=== PATIENT | male | born 1970 | race Caucasian/White ===

== ENCOUNTER 2025-03-25 09:44 | Outpatient (CLI) | payer MEDICARE, SELFPAY ==
--- NOTE | ~2025-03-25 | CT_ITS ---
CTA abdomen pelvis Clinical History: back pain Technique: Helical images lung bases to pelvic outlet IV contrast information not listed in PACS Coronal, sagittal reformats. Multiplanar MIPS CT images acquired with automatic exposure control for dose reduction DLP: 1280 mGy-cm Comparison: None Findings: CTA Findings: Abdominal aorta: Infrarenal AAA at 5.0 cm. No real neck below renal arteries. No extension into iliac arteries. Common iliac arteries: Diffusely diseased but patent without stenosis. External iliac arteries: Patent. Hypogastric arteries: Patent. CFAs: Patent. Proximal visualized SFAs and profundas: Patent. Celiac: Patent. SMA: Patent. HAYLEY: Patent. Renal arteries: Patent. Non-CTA findings: Lung bases: Clear. Visualized heart and pericardium: Unremarkable. Liver: Enlarged. Steatosis. Gallbladder: Severely contracted. Less likely prominent remnant cystic duct. Spleen: Unremarkable. Pancreas: Unremarkable. Adrenal glands: Unremarkable. Kidneys: Right kidney- No renal stones. No hydronephrosis. Left kidney-severe hydronephrosis with cortical thinning from UPJ stenosis. Distal esophagus/stomach: Mild distal esophageal wall thickening/esophagitis. Small bowel loops: Normal caliber and wall thickness. Colon: Diverticula. Normal caliber and wall thickness. Normal RLQ appendix. Nodes: No enlarged nodes. Peritoneum: No ascites. No free air. Urinary bladder: Unremarkable. Prostate: Unremarkable. Bones: No acute bony abnormality. Soft tissues: Umbilical hernia with fat with 2 distinct pockets. Small inguinal hernias. IMPRESSION: 1. 5 cm infrarenal AAA. Recommend endovascular consultation for management. 2. 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 3. Additional findings as above. Reviewed, dictated and finalized at location R. [employer]PER[facility] IMPRESSION: 1. 5 cm infrarenal AAA. Recommend endovascular consultation for management. 2. 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 3. Additional findings as above.
[2025-03-25 10:48] LABS: Estimated Glomerular Filt Rate > 60
--- OUTSIDE RECORDS SUMMARY | 2025-03-25 10:50 | XMS_ITS | Clinical Summary ---
Author Organization [facility] Address [address] [place] [address] Care Team Providers Care Major General Name Role Phone Jan Singletary MD Primary Care Provider Zay Muñiz MD Unavailable Allergies Active Allergy Reactions Criticality Noted Date Comments Nitroglycerin Dizziness Medium 01/27/2021 Didn't feel good, nausea Medications atorvastatin (LIPITOR) 80 mg tablet TAKE 1 TABLET BY MOUTH ONCE DAILY AT NIGHT 12/09/19 21 Active carvediloL (COREG) 12.5 mg tablet TAKE 1 TABLET BY MOUTH TWICE DAILY DIRECTED 11/30/19 21 Active fenofibrate choline (TRILIPIX) 135 mg capsule Take 1 capsule (135 mg total) by mouth daily 12/08/19 21 Active furosemide (LASIX) 40 mg tablet Take 1 tablet (40 mg total) by mouth daily 11/14/19 21 Active glipiZIDE (GLUCOTROL) 10 mg tablet Take 1 tablet (10 mg total) by mouth 2 (two) times a day 01/04/20 21 Active lisinopriL (PRINIVIL,ZEST RIL) 20 mg tablet Take 1 tablet (20 mg total) by mouth daily 11/30/19 21 Active omeprazole (PriLOSEC) 20 mg capsule Take 1 capsule (20 mg total) by mouth daily 10/19/19 21 Active semaglutide (Ozempic) 0.25 mg or 0.5 mg(2 mg/1.5 mL) pen injector injection Ozempic 0.25 mg or 0.5 mg (2 mg/1.5 mL) subcutaneous pen injector INJECT 0.25 MG SUBCUTANEOUSLY ONCE A WEEK FOR 4 WEEKS THEN 0.5MG WEEKLY Active Norvasc 10 mg tablet Take 1 tablet (10 mg total) by mouth daily 04/24/19 24 Active Vascepa 1 gram capsule Take 2 capsules (2 g total) by mouth 2 (two) times a day 06/03/19 24 Active HYDROcodone-ac etaminophen (NORCO) 5-325 mg per tabletIndicati ons:Pain Take 1 tablet by mouth daily as needed for pain 30 tablet 03/02/20 25 025 Active HYDROcodone-ac etaminophen (NORCO) 5-325 mg per tabletIndicati ons:Pain Take 1 tablet by mouth daily as needed for pain 30 tablet 04/01/20 25 026 Active naloxone (NARCAN) 4 mg/actuation spray,non-aero solIndications :meterman (current) use of opiate analgesic Administer 1 spray into affected nostril(s) as needed for opioid reversal or respiratory depression 1 each 01/20/20 25 Active HYDROcodone-ac etaminophen (NORCO) 5-325 mg per tabletIndicati ons:Pain Take 1 tablet by mouth daily as needed for pain 30 tablet 02/01/20 25 025 Active Problems Problem Noted Date Diagnosed Date meterman (current) use of opiate analgesic 09/2022 DDD (degenerative disc disease), lumbar 01/28/20 Degenerative lumbar spinal stenosis 01/27/2021 Lumbar facet arthropathy 01/10/2021 Resolved Problems Problem Noted Date Diagnosed Date Resolved Date Chronic low back pain without sciatica 01/10/2021 04/08/2024 Encounters Date Type Department Care Team Description 01/19/2025 10:24 AM CDT - 01/19/2025 11:59 PM CDT Hospital Encounter [facility] [address] [place] [address], [address] [address] Halley Noonan NP meterman (current) use of opiate analgesic (Primary Dx); Degeneration of intervertebral disc of lumbar region with discogenic back pain Discharge Disposition: Discharge to home or self care from Last 3 Months Surgical History Surgery Date Site/Laterality Comments CORONARY ARTERY BYPASS GRAFT Medical History Medical History Date Comments Myocardial infarction (HCC) Hypertension Diabetes mellitus Hypercholesteremia Sleep apnea Social History Tobacco Use Types Packs/Day Years Used Date Smoking Tobacco: Every Day Cigarettes 1.5 30 Smokeless Tobacco: Never Tobacco Cessation:Ready to Q uit: Not Asked; Counseling Given: Not Answered PHQ-2 Answer Date Recorded PHQ-2 Total Score (If total score is 3 or more points, staff should administer the PHQ-9) 0 01/19/2025 PHQ-9 Answer Date Recorded PHQ-9 Total Score 0 01/19/2025 Personal Safety Answer Date Recorded Have you ever been in or are you currently in a harmful physical or emotional relationship or is someone making you feel afraid or unsafe? Denies 12/02/2022 Sex and Gender Information Value Date Recorded Sex Assigned at Not on file Legal Sex Male 2:16 PM [employer] Gender Identity Not on file Sexual Orientation Not on file Last Filed Vital Signs Vital Sign Reading Time Taken Comments Blood Pressure 131/84 01/19/2025 10:49 AM CDT Pulse 65 01/19/2025 10:49 AM CDT Temperature 36.7 C (98 F) 12/02/2022 1:40 PM CDT Respiratory Rate 18 01/19/2025 10:49 AM CDT Oxygen Saturation 95% 01/19/2025 10:49 AM CDT Inhaled Oxygen Concentration - - Weight 129.3 kg (285 lb) 12/02/2022 10:32 AM CDT Height 170.2 cm (5' 7) 12/02/2022 10:32 AM CDT Body Mass Index 44.64 12/02/2022 10:32 AM CDT Plan of Treatment Health Maintenance Due Date Last Done Comments Colon Cancer Screening-Colonoscopy 1968 Hepatitis C Screening 1968 Prostate Cancer Screening-PSA 1968 DTaP/Tdap/Td Vaccine (1 - Tdap) 01/21/1979 Hepatitis B Screening 01/21/1986 Regular Well Visit/Exam 18-64 01/21/1986 Pneumococcal vaccine <65 (1 of 2 - PCV) 01/21/1987 Lung Cancer Screening 01/21/2018 Zoster Vaccine (1 of 2) 01/21/2018 Covid-19 Vaccine (3 - 2024-2 6 season) 2024 07/15/2020, 06/23/2020 Influenza Vaccine (#1) 2024 Depression Screening 01/19/2026 01/19/2025, 01/19/2025, 10/21/2024, Additional history exists Insurance [facility] Address: [facility] [address] [place] [address] [facility] Address: [facility] [address] [address] [place] [phone] Care Teams Major General Relationship Specialty Start Date End Date Jan Singletary MD PCP - General Internal Medicine 01/23/22 Zay Muñiz MD Anesthesiologist Pain Management 03/30/22
== END 2025-03-25 09:45 | disposition home or self-care (01) ==
PROVIDERS: PCP Anesthesiology; Visit Provider Internal Medicine Cardiovascular Disease
DX: M54.9 Dorsalgia, unspecified (principal); E66.9 Obesity, unspecified; G47.33 Obstructive sleep apnea (adult) (pediatric); I20.9 Angina pectoris, unspecified; E11.9 Type 2 diabetes mellitus without complications; I49.3 Ventricular premature depolarization; R06.02 Shortness of breath; E78.2 Mixed hyperlipidemia; I10 Essential (primary) hypertension; I25.2 Old myocardial infarction; F17.200 Nicotine dependence, unspecified, uncomplicated; I25.810 Atherosclerosis of coronary artery bypass graft(s) without angina pectoris; I71.43 Infrarenal abdominal aortic aneurysm, without rupture
CPT/HCPCS: 74174; Q9967